=== PATIENT | female | born 1995 | race Two or more races ===

== ENCOUNTER 2023-08-23 22:44 | Emergency (ER) | payer SELFPAY ==
[~2023-08-23] VITALS: Ht 162.6 cm; Wt 58.0 kg
[2023-08-23 22:46] VITALS: BP 106/68; PULSE 65; RESP 18; TEMP 97.5; O2SAT 96
== END 2023-08-24 00:11 | disposition left against medical advice (07) ==
LOC: ER 22:52
DX: R06.02 Shortness of breath (principal); Z53.21 Procedure and treatment not carried out due to patient leaving prior to being seen by health care provider
CPT/HCPCS: 99281